=== PATIENT | male | born 1935 | race Caucasian/White ===

== ENCOUNTER 2017-01-18 10:59 | Emergency (ER) | payer MEDICARE, OTHER ==
--- NOTE | 2017-01-18 11:19 | EDM.PDOC ---
ED HPI GENERAL MEDICAL PROBLEM - General Chief Complaint: Respiratory Problem Stated Complaint: SOB POSSBLE PNEUMONIA Time Seen by Provider: 01/18/17 11:05 Source of Information: Reports: Old Records History Limitations: Reports: Altered Mental Status (dementia) - History of Present Illness INITIAL COMMENTS - FREE TEXT/NARRATIVE: Yonathan is a resident of [facility] with a hx of dementia who has been congested and coughing over the past 24 hrs. There is no hx of fever, sweats, choking episodes, rash, or vomiting. No meds have been given. His family requested an ED evaluation. He is DNR/DNI. - Related Data Allergies Allergy/AdvReac Type Severity Reaction Status Date / Time No Known Allergies Allergy Verified 09/16/14 21:06 Home Meds: Home Meds Acetaminophen [Tylenol Extra Strength] 1,000 mg PO BID 05/12/13 [History] Cholecalciferol (Vitamin D3) [Vitamin D3] 5,000 unit PO DAILY 05/12/13 [History] Losartan/Hydrochlorothiazide [Losartan-HCTZ 50-12.5 MG] 1 each PO DAILY [History] Metoprolol Tartrate 50 mg PO BID 05/12/13 [History] Phenytoin Sodium Extended 300 mg PO DAILY 05/12/13 [History] QUEtiapine [SEROquel] 100 mg PO BEDTIME 05/12/13 [History] Tamsulosin [Flomax] 0.4 mg PO DAILY 05/12/13 [History] traMADol [Ultram] 50 mg PO DAILY 05/12/13 [History] traMADol [Ultram] 50 mg PO Q8H PRN 05/12/13 [History] Potassium Chloride 10 meq PO DAILY #30 cap.er 05/17/13 [Rx] Omeprazole 20 mg PO 0600 #30 cap.sr 08/21/13 [Rx] Magnesium Hydroxide [Milk of Magnesia] 30 ml PO ASDIRECTED PRN 09/16/14 [History ] Polyethylene Glycol 3350 [MiraLAX] 17 gram PO BEDTIME 09/16/14 [History] Past Medical History Cardiovascular History: Reports: High Cholesterol, Hypertension Neurological History: Reports: TIA Social & Family History - Tobacco Use Smoking Status *Q: Never Smoker Second Hand Smoke Exposure: No - Alcohol Use Days Per Week of Alcohol Use: 0 - Recreational Drug Use Recreational Drug Use: No - Living Situation & Occupation Living situation: Reports: , with Family Occupation: Retired ED ROS GENERAL - Review of Systems Review Of Systems: Unable To Obtain ED EXAM, GENERAL - Physical Exam Exam: See Below Exam Limited By: Altered Mental Status General Appearance: No Apparent Distress, Lethargic Eye Exam: Bilateral Eye: Normal Inspection, PERRL Ears: Normal External Exam Nose: Normal Inspection Throat/Mouth: Normal Inspection, Normal Lips, No Airway Compromise Head: Normocephalic Neck: Normal Inspection, Limited Range of Motion Respiratory/Chest: No Respiratory Distress, No Accessory Muscle Use, Crackles Cardiovascular: Irregularly Irregular GI/Abdominal: Normal Bowel Sounds, Soft, No Organomegaly, No Distention, No Mass Back Exam: Normal Inspection Extremities: Normal Inspection, Limited Range of Motion Neurological: Inattentive, Confused Psychiatric: Flat Affect Skin Exam: Warm, Dry Lymphatic: No Adenopathy Course - Vital Signs Text/Narrative:: Yonathan remained stable at the [facility] ED. His labwork was reviewed, with mild elevation of WBC 12,900, Hgb 14.0 gm, plts 381,000; Cr 1.5 mg, BUN 27; UA noting >100 WBC/HPF, many bact, nitrites pos; a UC was set up. An asx UTI is apparent, and Cipro 500 mg po was administered before discharge. Daughter was notified of results and discharge. - Orders/Labs/Meds Orders: Active Orders 24 hr Category Date Time Status Chest 1V Frontal [CR] Stat Exams 01/18/17 11:12 Taken CULTURE URINE [RM] Stat Lab 01/18/17 11:16 Received Labs: Laboratory Tests 01/18/17 01/18/17 01/18/17 Range/Units 11:16 12:00 12:00 WBC 12.9 H (4.5-12.0) X10-3/uL RBC 4.31 (4.30-5.75) x10(6)uL Hgb 14.0 D (11.5-15.5) g/dL Hct 41.8 D (30.0-51.3) % MCV 96.8 H (80-96) fL MCH 32.4 (27.7-33.6) pg MCHC 33.4 (32.2-35.4) g/dL RDW 12.5 (11.5-15.5) % Plt Count 381 H (125-369) X10(3)uL MPV 7.3 L (7.4-10.4) fL Neut % (Auto) 77.8 (46-82) % Lymph % (Auto) 12.3 L (13-37) % Person % (Auto) 8.7 (4-12) % Eos % (Auto) 1 (1.0-5.0) % Baso % (Auto) 1 (0-2) % Neut # (Auto) 10.0 H (1.6-8.3) # Lymph # (Auto) 1.6 (0.6-5.0) # Person # (Auto) 1.1 (0.0-1.3) # Eos # (Auto) 0.1 (0.0-0.8) # Baso # (Auto) 0.1 (0.0-0.2) # Sodium 140 (135-145) mmol/L Potassium 3.8 (3.5-5.3) mmol/L Chloride 106 (100-110) mmol/L Carbon Dioxide 23 (23-29) mmol/L BUN 27 H D (8-23) mg/dL Creatinine 1.5 H (0.6-1.3) mg/dL Est Cr Clr Drug Dosing TNP Estimated GFR (MDRD) 45 L (>60) BUN/Creatinine Ratio 18.0 (9-20) Glucose 125 H (80-116) mg/dL Calcium 8.7 (8.6-10.2) mg/dL Urine Color Yellow (YELLOW) Urine Appearance Cloudy (CLEAR) Urine pH 5.0 (5.0-6.5) Ur Specific [place] 1.020 (1.010-1.025) Urine Protein Negative (NEGATIVE) mg/dL Urine Glucose (UA) Normal (NEGATIVE) mg/dL Urine Ketones 15 H (NEGATIVE) mg/dL Urine Occult Blood Moderate H (NEGATIVE) Urine Nitrite Positive H (NEGATIVE) Urine Bilirubin Negative (NEGATIVE) Urine Urobilinogen Normal (NEGATIVE) mg/dL Ur Leukocyte Esterase Large H (NEGATIVE) Urine RBC 5-10 (0) Urine WBC >100 H (0) Ur Squamous Epith Cells Occasional (NS,R,O) Urine Bacteria Many H (NS) Departure - Departure Time of Disposition: 13:15 Disposition: DC/Tfer to SNF 03 Condition: Poor Clinical Impression: Failure to thrive in adult Urinary tract infection Qualifiers: Urinary tract infection type: acute cystitis Hematuria presence: without hematuria Qualified Code(s): N30.00 - Acute cystitis without hematuria - Discharge Information Referrals: Obi Barakat MD [Primary Care Provider] - Forms: ED Department Discharge - Problem List & Annotations (1) Failure to thrive in adult SNOMED Code(s): 015339826 Code(s): R62.7 - ADULT FAILURE TO THRIVE Status: Acute Current Visit: Yes Annotation/Comment:: Yonathan is DNR/DNI and has lost 22# over the past 2 mos. His prognosis is poor. (2) Urinary tract infection SNOMED Code(s): 27365731 Code(s): N39.0 - URINARY TRACT INFECTION, SITE NOT SPECIFIED Status: Acute Current Visit: Yes Annotation/Comment:: Apparent incipient cystitis, managed with Cipro 500 mg bid for a week. Qualifiers: Urinary tract infection type: acute cystitis Hematuria presence: without hematuria Qualified Code(s): N30.00 - Acute cystitis without hematuria - Problem List Review Problem List Initiated/Reviewed/Updated: Yes - My Orders Last 24 Hours: My Active Orders 01/18/17 11:12 Chest 1V Frontal [CR] Stat 01/18/17 11:16 CULTURE URINE [RM] Stat - Assessment/Plan Last 24 Hours: My Active Orders 01/18/17 11:12 Chest 1V Frontal [CR] Stat 01/18/17 11:16 CULTURE URINE [RM] Stat Plan: Yonathan will remain on Cipro 500mg bid for a week, UC and S pending. Follow up with PCP at [facility].
[2017-01-18] MEDS ORDERED: Ciprofloxacin 500 MG Tab PO ONE (13:03)
--- NOTE | 2017-01-18 13:05 | CR ---
INDICATION: Coughing. CHEST: An AP upright view of the chest was obtained 01/18/2017 and compared with 08/19/2013 and 08/16/2013, again revealing a very poor inspiration emphasizing markings and making it difficult to exclude patchy bronchopneumonia , especially at the left lung base, lower lobe. Minimal pneumonia certainly cannot be excluded, especially at the left lung base - lower lobe. The heart appears enlarged, the aorta tortuous with calcification in the arch. Overlying EKG leads are noted. IMPRESSION: 1. No definite acute process, but cannot exclude patchy pneumonia at the left lower lobe especially, due to the poor inspiration. 2. ASHD with probable cardiomegaly. MTDD
[2017-01-18 15:11] VITALS: BP 153/90
== END 2017-01-18 13:45 | disposition home or self-care (01) ==
LOC: FB.ED 10:59
DX: N30.00 Acute cystitis without hematuria (principal); R62.7 Adult failure to thrive; I10 Essential (primary) hypertension; E78.00 Pure hypercholesterolemia, unspecified; F03.90 Unspecified dementia, unspecified severity, without behavioral disturbance, psychotic disturbance, mood disturbance, and anxiety; Z79.899 Other long term (current) drug therapy
CPT/HCPCS: 36415; 71010; 80048; 81001; 85025; 87086; 87088; 87186; 99285; A9270

== ENCOUNTER 2017-01-19 11:20 | Inpatient (IN) | payer MEDICARE, OTHER ==
[2017-01-19] MEDS ORDERED: Albuterol/Ipratropium 3.0-0.5 MG/3 ML Neb Soln NEB ONE (11:28)
--- NOTE | 2017-01-19 11:47 | EDM.PDOC ---
ED HPI GENERAL MEDICAL PROBLEM - General Stated Complaint: UNRESPONSIVE Time Seen by Provider: 01/19/17 11:20 Source of Information: Reports: EMS, Family History Limitations: Reports: Altered Mental Status, Physical Impairment - History of Present Illness INITIAL COMMENTS - FREE TEXT/NARRATIVE: 81 years old w m DNR/DNI was found unresponsive at the N/V 2 days ago. Pt was seen in this ed yesterday and was diagnosed with an uti and pneumonia. Pt was sent home to the with oral Abx. Pt is nonverbal for 2 days and not able swallow food, pills and not able to drink water. Pt did not ppen his eyes for 2 days, does not follow verbal stimuli. He responds to pain by moving his head and attempting to open his eyes. No F/C/N/V/D. Pt is incontinent. Onset: Sudden Onset Date: 01/17/17 Onset Time: 07:00 Duration: Day(s): Location: Reports: Generalized Severity: Mild - Related Data Allergies Allergy/AdvReac Type Severity Reaction Status Date / Time No Known Allergies Allergy Verified 01/19/17 11:40 Home Meds: Home Meds Acetaminophen [Tylenol Extra Strength] 1,000 mg PO BID 05/12/13 [History] Cholecalciferol (Vitamin D3) [Vitamin D3] 5,000 unit PO DAILY 05/12/13 [History] Losartan/Hydrochlorothiazide [Losartan-HCTZ 50-12.5 MG] 1 each PO DAILY [History] Metoprolol Tartrate 50 mg PO BID 05/12/13 [History] Phenytoin Sodium Extended 300 mg PO DAILY 05/12/13 [History] QUEtiapine [SEROquel] 200 mg PO BEDTIME 05/12/13 [History] Tamsulosin [Flomax] 0.4 mg PO DAILY 05/12/13 [History] traMADol [Ultram] 50 mg PO DAILY 05/12/13 [History] Potassium Chloride 10 meq PO DAILY #30 cap.er 05/17/13 [Rx] Omeprazole 20 mg PO 0600 #30 cap.sr 08/21/13 [Rx] Magnesium Hydroxide [Milk of Magnesia] 30 ml PO ASDIRECTED PRN 09/16/14 [History ] Polyethylene Glycol 3350 [MiraLAX] 17 gram PO BEDTIME 09/16/14 [History] risperiDONE Microspheres [RisperiDAL Consta] 25 mg PO Q14D 01/18/17 [History] Acetaminophen [Acetaminophen 8 Hour] 650 mg PO Q4H PRN 01/19/17 [History] Bisacodyl [Dulcolax] 10 mg RECTAL DAILY PRN 01/19/17 [History] Ciprofloxacin HCl [Cipro] 500 mg PO BID 01/19/17 [History] Dextran 70/Hypromellose [Artificial Tears] 1 drop EYEBOTH BID PRN 01/19/17 [ History] Menthol/Selenium Sulfide [Selsun Blue 1% Shampoo] 1 applic TOP TH 01/19/17 [ History] Past Medical History Cardiovascular History: Reports: High Cholesterol, Hypertension Genitourinary History: Reports: Prostate Disorder, Renal Disease, Urinary Incontinence, UTI, Recurrent Musculoskeletal History: Reports: Osteoarthritis, Other (See Below) Other Musculoskeletal History: muscle wasting Neurological History: Reports: TIA Psychiatric History: Reports: Bipolar, Dementia, Depression, Hallucinations Hematologic History: Reports: Anemia Social & Family History - Tobacco Use Smoking Status *Q: Never Smoker Second Hand Smoke Exposure: No - Alcohol Use Days Per Week of Alcohol Use: 0 - Recreational Drug Use Recreational Drug Use: No - Living Situation & Occupation Living situation: Reports: , with Family Occupation: Retired ED ROS GENERAL - Review of Systems Review Of Systems: Unable To Obtain ED EXAM, NEURO - Physical Exam Exam: See Below Exam Limited By: Altered Mental Status General Appearance: Alert, Mild Distress Eye Exam: Bilateral Eye: Abnormal EOM, Vision Changes (Unable to exam) Ears: Normal External Exam Nose: Normal Inspection Throat/Mouth: Other (dry mucosal membrane) Head Exam: Atraumatic, Normocephalic Neck: Normal Inspection Respiratory/Chest: No Respiratory Distress, Rhonchi, Wheezing Cardiovascular: Normal Peripheral Pulses, Tachycardia GI/Abdominal: Normal Bowel Sounds, Soft (Male) Exam: Deferred Rectal (Males) Exam: Deferred Neurological: Other (pt is nonverbal, no response to verbal stimuli, minor response to pain with head movement) Back Exam: Normal Inspection Extremities: Normal Inspection Psychiatric: Depressed Mood Skin Exam: Warm, Dry, Intact, Pallor EKG INTERPRETATION EKG Date: 01/19/17 Time: 11:50 Rhythm: NSR Rate (Beats/Min): 102 [place]: Normal P-Wave: Present QRS: Normal ST-T: Normal QT: Normal Comparison: NA - No Prior EKG Course - Vital Signs Text/Narrative:: 81 years old w m DNR/DNI was found unresponsive at the N/V 2 days ago. Pt was seen in this ed yesterday and was diagnosed with an uti and pneumonia. Pt was sent home to the with oral Abx. Pt is nonverbal for 2 days and not able swallow food, pills and not able to drink water. Pt did not ppen his eyes for 2 days, does not follow verbal stimuli. He responds to pain by moving his head and attempting to open his eyes. No F/C/N/V/D. Pt is incontinent. BP 159/70 Temp 37.3 Pulse ox 98% RA HR 102 PE: Nonverbal 81 y.o.w.m GCS 5 Imaging: Extension of prev frontal CVA Labs: WBC 14K, Cr 1.9 (1.5) UTI (01/18/2018) Impression: Dehydration, CRI, Nonverbal, H/O CVA with leftsided hemiparsis/ plegia, Incontinence, UTI. DNR/DNI Tx: NS, Abx Consultation: Dr. Gan, Hospitalist: Accepted the pt for admission Last Recorded V/S: Last Vital Signs Temp 36.8 C 01/20/17 16:20 Pulse 101 H 01/20/17 16:20 Resp 20 01/20/17 16:20 BP 151/97 H 01/20/17 16:20 Pulse Ox 95 01/20/17 16:20 - Orders/Labs/Meds Orders: Medication Orders Acetaminophen (Tylenol) 650 mg RECTAL Q4H PRN PRN Reason: Mild pain/fever Artificial Tears (Liquitears 1.4% Ophth Soln) 0 ml EYEBOTH ASDIRECTED PRN PRN Reason: DRY EYES Sodium Chloride (Normal Saline) 1,000 mls @ 125 mls/hr IV ASDIRECTED ANMOL Last Admin: 01/20/17 15:13 Dose: 125 mls/hr Infusion: 01/20/17 14:01 Dose: 125 mls/hr Admin: 01/20/17 06:01 Dose: 125 mls/hr Infusion: 01/20/17 05:49 Dose: 125 mls/hr Admin: 01/19/17 21:49 Dose: 125 mls/hr Infusion: 01/19/17 20:57 Dose: 125 mls/hr Admin: 01/19/17 12:57 Dose: 125 mls/hr Levofloxacin/Dextrose 250 mg/ (Premix) 50 mls @ 50 mls/hr IV Q24H [facility] Last Admin: 01/20/17 12:01 Dose: 50 mls/hr Metoprolol Tartrate 5 mg/ (Sodium Chloride) 55 mls @ 100 mls/hr IV Q4H PRN PRN Reason: Hypertension Lorazepam (Ativan) 0.25 mg IVPUSH Q8H PRN PRN Reason: Agitation Morphine Sulfate (Morphine) 2 mg IVPUSH Q2H PRN PRN Reason: Pain (severe 7-10) Phenytoin Sodium (Phenytoin) 90 mg IV Q8H [facility] Last Admin: 01/20/17 14:45 Dose: 90 mg Labs: Laboratory Tests 01/19/17 01/19/17 01/19/17 Range/Units 11:45 11:50 11:50 WBC 14.3 H (4.5-12.0) X10-3/uL RBC 4.10 L (4.30-5.75) x10(6)uL Hgb 13.4 (11.5-15.5) g/dL Hct 39.9 (30.0-51.3) % MCV 97.4 H (80-96) fL MCH 32.6 (27.7-33.6) pg MCHC 33.5 (32.2-35.4) g/dL RDW 12.6 (11.5-15.5) % Plt Count 346 (125-369) X10(3)uL MPV 7.1 L (7.4-10.4) fL Neut % (Auto) 77.0 (46-82) % Lymph % (Auto) 11.9 L (13-37) % [place] % (Auto) 9.8 (4-12) % Eos % (Auto) 0 L (1.0-5.0) % Baso % (Auto) 1 (0-2) % Neut # (Auto) 11.1 H (1.6-8.3) # Lymph # (Auto) 1.7 (0.6-5.0) # [place] # (Auto) 1.4 H (0.0-1.3) # Eos # (Auto) 0.0 (0.0-0.8) # Baso # (Auto) 0.1 (0.0-0.2) # PT 11.6 H (8.7-11.1) INR 1.15 H (0.89-1.13) Sodium 143 (135-145) mmol/L Potassium 3.7 (3.5-5.3) mmol/L Chloride 108 (100-110) mmol/L Carbon Dioxide 24 (23-29) mmol/L BUN 40 H D (8-23) mg/dL Creatinine 1.9 H (0.6-1.3) mg/dL Est Cr Clr Drug Dosing 27.54 mL/min Estimated GFR (MDRD) 34 L (>60) BUN/Creatinine Ratio 21.1 H (9-20) Glucose 127 H (80-116) mg/dL Lactic Acid (0.5-2.2) mmol/L Calcium 8.8 (8.6-10.2) mg/dL B-Natriuretic Peptide (0-100) pg/mL Phenytoin (10-20) ug/mL 01/19/17 01/19/17 01/19/17 Range/Units 11:50 11:50 11:50 WBC (4.5-12.0) X10-3/uL RBC (4.30-5.75) x10(6)uL Hgb (11.5-15.5) g/dL Hct (30.0-51.3) % MCV (80-96) fL MCH (27.7-33.6) pg MCHC (32.2-35.4) g/dL RDW (11.5-15.5) % Plt Count (125-369) X10(3)uL MPV (7.4-10.4) fL Neut % (Auto) (46-82) % Lymph % (Auto) (13-37) % [place] % (Auto) (4-12) % Eos % (Auto) (1.0-5.0) % Baso % (Auto) (0-2) % Neut # (Auto) (1.6-8.3) # Lymph # (Auto) (0.6-5.0) # [place] # (Auto) (0.0-1.3) # Eos # (Auto) (0.0-0.8) # Baso # (Auto) (0.0-0.2) # PT (8.7-11.1) INR (0.89-1.13) Sodium (135-145) mmol/L Potassium (3.5-5.3) mmol/L Chloride (100-110) mmol/L Carbon Dioxide (23-29) mmol/L BUN (8-23) mg/dL Creatinine (0.6-1.3) mg/dL Est Cr Clr Drug Dosing mL/min Estimated GFR (MDRD) (>60) BUN/Creatinine Ratio (9-20) Glucose (80-116) mg/dL Lactic Acid 1.3 (0.5-2.2) mmol/L Calcium (8.6-10.2) mg/dL B-Natriuretic Peptide 199 H (0-100) pg/mL Phenytoin 6.9 L (10-20) ug/mL Meds: Medications Generic Name Dose Route Start Last Admin Trade Name Freq PRN Reason Stop Dose Admin Acetaminophen 650 mg 01/19/17 14:05 Tylenol RECTAL Q4H PRN Mild pain/fever Artificial Tears 0 ml 01/19/17 15:00 Liquitears 1.4% Ophth Soln EYEBOTH ASDIRECTED PRN DRY EYES Sodium Chloride 1,000 mls @ 125 mls/hr 01/19/17 11:30 01/20/17 15:13 Normal Saline IV 125 mls/hr ASDIRECTED ANMOL Administration Levofloxacin/Dextrose 250 mg/ 50 mls @ 50 mls/hr 01/20/17 12:00 01/20/17 12: 01 Premix IV 50 mls/hr Q24H ANMOL Administration Metoprolol Tartrate 5 mg/ 55 mls @ 100 mls/hr 01/19/17 19:17 Sodium Chloride IV Q4H PRN Hypertension Lorazepam 0.25 mg 01/19/17 19:11 Ativan IVPUSH Q8H PRN Agitation Morphine Sulfate 2 mg 01/19/17 14:05 Morphine IVPUSH Q2H PRN Pain (severe 7-10) Phenytoin Sodium 90 mg 01/20/17 14:00 01/20/17 14:45 Phenytoin IV 90 mg Q8H ANMOL Administration Discontinued Medications Generic Name Dose Route Start Last Admin Trade Name Freq PRN Reason Stop Dose Admin Albuterol/Ipratropium 3 ml 01/19/17 11:28 01/19/17 11:46 Duoneb 3.0-0.5 Mg/3 Ml NEB 01/19/17 11:29 3 ml ONETIME ONE Administration Levofloxacin/Dextrose 500 mg/ 100 mls @ 100 mls/hr 01/19/17 12:29 01/19/17 13 :06 Premix IV 01/19/17 13:28 100 mls/hr ONETIME ONE Administration Phenytoin Sodium 90 mg 01/19/17 21:00 01/20/17 05:29 Phenytoin IV 90 mg Q8H ANMOL Administration Departure - Departure Time of Disposition: 16:00 Disposition: Admitted As Inpatient 64 Condition: Poor Clinical Impression: CVA (cerebral vascular accident) Qualifiers: CVA mechanism: unspecified Qualified Code(s): I63.9 - Cerebral infarction, unspecified - Discharge Information
[2017-01-19] MEDS ORDERED: Levofloxacin/Dextrose 5%-Water 500 MG in Premix Bag 1 BAG IV ONE (12:29)
[2017-01-19] MEDS: Sodium Chloride 0.9% 1,000 ML IV SCH ×2 (12:57→21:49)
[2017-01-19] MEDS ORDERED: Acetaminophen 650 MG Supp RECTAL PRN (14:05)
[2017-01-19] MEDS ORDERED: Morphine 2 MG/ML Syringe IVPUSH PRN (14:05)
--- NOTE | 2017-01-19 14:22 | CT ---
INDICATION: Non-responsive since yesterday. CT HEAD WITHOUT CONTRAST: Three sets of scans were obtained apparently due to motion in this non-responsive patient. 2.5 and 5-mm images were obtained 2016. They were compared with 09/16/2014. Total Exam DLP = 2330.32 mGy-cm. There is no shift of midline structures. Ventricles are again prominent and appear fairly similar or perhaps very slightly increased in prominence, compared with the previous study, compatible with central atrophy, possibly minimally progressive. Large areas of abnormal decreased density are noted in the white matter and extending into the cortex in the frontoparietal area on the right, occipital area on the left, and the left frontal area also. The latter two are significantly increased in the case of the left occipital area and new in the case of the left frontal area. These are all areas compatible with previous thrombotic CVAs. No evidence of a hemorrhage - bleeding site - could be identified - no hematoma was seen. Calcifications are noted in the vertebral and internal carotid arteries. Wide spread abnormal decreased density in the white matter is compatible with severe microvascular disease additionally. Cortical sulci are prominent, compatible with cortical atrophy. Paranasal sinuses and mastoid air cells appear to be fairly well aerated. No definite cranial abnormality was seen. IMPRESSION: Multiple areas of encephalomalacia compatible with previous CVAs. Two are new or increased compared with the previous study of 2014. No definite acute intracranial abnormality suggested. MTDD
--- NOTE | 2017-01-19 14:28 | PCM.HP ---
H&P History of Present Illness - General Date of Service: 01/19/17 Admit Problem/Dx: Admission Diagnosis/Problem Admission Diagnosis/Problem Pneumonia, obtundation Source of Information: Family, Old Records, Provider History Limitations: Reports: Altered Mental Status (patient obtunded, dementia at baseline), Other - History of Present Illness Initial Comments - Free Text/Narative: The patient is an 81-year-old male shelter resident who about 3 days ago started to develop a cough. He has underlying dementia and at baseline is nonambulatory and has full cares provided. He became progressively less verbal on the and very sleepy. No PO Intake. By the was lethargic unable to get up to sit in the chair and had a cough which is productive of yellow phlegm. He was nonresponsive by 8:30 in the morning with a low-grade temp and slightly tachycardiac, hypertensive. Family decided to have the patient taken to the emergency room for further evaluation. He was found in the emergency room to have a pneumonia on chest x-ray and a UTI and was given a prescription for oral ciprofloxacin to take back to the shelter. Unfortunately the patient has not been able to take any oral medication and they brought him back in today for further evaluation. He was found here to continue to be unresponsive and to have a creatinine of 1.9 with a baseline of 1.5. After discussion with the patient's daughter, the decision was made to admit for IV antibiotics and IV fluids, recognizing that because prognosis is poor, they would not want anything aggressive to be done to cause the patient pain or distress. If he starts to seem agitated or in distress, they would like him medicated for that. They would like him to have about 24-48 hours to see if he improves and if not, we would proceed with comfort cares. 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 He has had 2 previous broken hips from falls on the left side as well, likely due to that weakness. He 's had memory troubles with Alzheimer's-like symptoms for the last 6 months to a year. He has not been ambulatory since he went into the shelter for 3 years ago. He's been a full cares at the shelter. He sometimes recognizes family, sometimes doesn't. He's had trouble with mood altering medications causing hallucinations in the past. Has a history of seizures possibly from his previous strokes with one seizure and been maintained on phenytoin ever since. #2 gastroesophageal reflux disease #3 bipolar disorder #4 history of recurrent UTIs #5 anemia #6 hypertension #7 history of chronic atrial fibrillation, currently not on anticoagulation due to falls and risk for bleeding. #8 osteoporosis #9 hyperlipidemia currently untreated due to age and morbidity. #10 chronic kidney disease with baseline creatinine 1-1.5 range. Current medications see medication reconciliation list Allergies: No known drug allergies Family history: Noncontributory Social history: The patient is and moved into the shelter here about 3 years ago. After his strokes he became less and less cooperative with cares although he had been maintained at home for some time after his strokes. He was unwilling to ambulate or continue to participate in cares and ultimately required shelter placement. - Related Data Allergies/Adverse Reactions: Allergies Allergy/AdvReac Type Severity Reaction Status Date / Time No Known Allergies Allergy Verified 01/19/17 11:40 Home Medications: Home Meds Acetaminophen [Tylenol Extra Strength] 1,000 mg PO BID 05/12/13 [History] Cholecalciferol (Vitamin D3) [Vitamin D3] 5,000 unit PO DAILY 05/12/13 [History] Losartan/Hydrochlorothiazide [Losartan-HCTZ 50-12.5 MG] 1 each PO DAILY [History] Metoprolol Tartrate 50 mg PO BID 05/12/13 [History] Phenytoin Sodium Extended 300 mg PO DAILY 05/12/13 [History] QUEtiapine [SEROquel] 200 mg PO BEDTIME 05/12/13 [History] Tamsulosin [Flomax] 0.4 mg PO DAILY 05/12/13 [History] traMADol [Ultram] 50 mg PO DAILY 05/12/13 [History] Potassium Chloride 10 meq PO DAILY #30 cap.er 05/17/13 [Rx] Omeprazole 20 mg PO 0600 #30 cap.sr 08/21/13 [Rx] Magnesium Hydroxide [Milk of Magnesia] 30 ml PO ASDIRECTED PRN 09/16/14 [History ] Polyethylene Glycol 3350 [MiraLAX] 17 gram PO BEDTIME 09/16/14 [History] risperiDONE Microspheres [RisperiDAL Consta] 25 mg PO Q14D 01/18/17 [History] Acetaminophen [Acetaminophen 8 Hour] 650 mg PO Q4H PRN 01/19/17 [History] Bisacodyl [Dulcolax] 10 mg RECTAL DAILY PRN 01/19/17 [History] Ciprofloxacin HCl [Cipro] 500 mg PO BID 01/19/17 [History] Dextran 70/Hypromellose [Artificial Tears] 1 drop EYEBOTH BID PRN 01/19/17 [ History] Menthol/Selenium Sulfide [Selsun Blue 1% Shampoo] 1 applic TOP TH 01/19/17 [ History] Past Medical History HEENT History: Reports: Other (See Below) Other HEENT History: dry eye Cardiovascular History: Reports: High Cholesterol, Hypertension Gastrointestinal History: Reports: GERD Genitourinary History: Reports: Prostate Disorder, Renal Disease, Urinary Incontinence, UTI, Recurrent Musculoskeletal History: Reports: Osteoarthritis, Other (See Below) Other Musculoskeletal History: muscle wasting Neurological History: Reports: TIA Other Neuro History: hemiplegia & hemiparesis Psychiatric History: Reports: Bipolar, Dementia, Depression, Hallucinations Hematologic History: Reports: Anemia Social & Family History - Family History Family Medical History: Unobtainable - Tobacco Use Smoking Status *Q: Never Smoker Second Hand Smoke Exposure: No - Caffeine Use Caffeine Use: Reports: None - Alcohol Use Days Per Week of Alcohol Use: 0 - Recreational Drug Use Recreational Drug Use: No - Living Situation & Occupation Living situation: Reports: , with Family Occupation: Retired H&P Review of Systems - Review of Systems: Review Of Systems: See Below General: Reports: ROS unobtainable, Other (Taken from [facility] records. As per HPI. Patient obtunded.) Exam - Exam Exam: See Below - Vital Signs Vital Signs: Last Vital Signs Temp 36.6 C 01/19/17 13:55 Pulse 103 H 01/19/17 13:55 Resp 18 01/19/17 13:55 BP 149/88 H 01/19/17 13:55 Pulse Ox 98 01/19/17 13:55 Weight: 83.489 kg - Exam General: Obtunded HEENT: Other (eyes closed, with forcible opening very constricted and patient resists attempts to examine.) Neck: Supple Lungs: Clear to Auscultation, Decreased Breath Sounds Cardiovascular: Regular Rhythm, Normal S1, Normal S2, Tachycardia GI/Abdominal Exam: Soft, Non-Tender, No Distention, Abnormal Bowel Sounds ( hypoactive) Back Exam: Normal Inspection Extremities: Other (left arm and both hands somewhat contracted. ) Skin: Warm, Dry, Intact (full skin exam not performed. ) Neuro Extensive - Mental Status: Withdraws to Pain, Other (resists passive movement of extremities. ) - Patient Data Result Diagrams: 01/19/17 11:50 01/19/17 11:50 Imaging Impressions Last 24 hrs: xray shows question of infiltrate. Patient however may be too dry to show infiltrate even if present. EKG INTERPRETATION EKG Date: 01/19/17 (monitoring in ER shows A fib) *Q Meaningful Use (ADM) - VTE *Q VTE Criteria *Q: VTE Anticoagulation Contraindications: Medical/Procedure Contrai - Stroke *Q Stroke Criteria *Q: - AMI *Q AMI Criteria *Q: - Problem List (1) Obtundation SNOMED Code(s): 78393689 ICD Code: R40.1 - STUPOR Status: Acute Current Visit: Yes Problem Details: Patient unresponsive, dehydrated, possibly septic. Continue antibiotic therapy with Levaquin as ordered in the emergency department. Renally dosed. IV fluids at 125 mL an hour normal saline. Hernández catheter placed. Palliative care measures initiated. 24-48 hours to see if patient responds to above therapy. Prognosis is fairly poor. (2) senior living-acquired pneumonia SNOMED Code(s): 052512970 ICD Code: J18.9 - PNEUMONIA, UNSPECIFIED ORGANISM Status: Acute Current Visit: Yes Problem Details: Continue renally dosed levaquin. (3) Urinary tract infection SNOMED Code(s): 65352157 ICD Code: N39.0 - URINARY TRACT INFECTION, SITE NOT SPECIFIED Status: Acute Current Visit: No Problem Details: Use IV levaquin, renally dosed. Qualifiers: Urinary tract infection type: acute cystitis Hematuria presence: without hematuria Qualified Code(s): N30.00 - Acute cystitis without hematuria (4) TEN (acute kidney injury) SNOMED Code(s): 56291532 ICD Code: N17.9 - ACUTE KIDNEY FAILURE, UNSPECIFIED Status: Acute Current Visit: Yes Problem Details: IV hydration, follow labs and UO. (5) Seizure disorder SNOMED Code(s): 455930597 ICD Code: G40.909 - EPILEPSY, UNSP, NOT INTRACTABLE, WITHOUT STATUS EPILEPTICUS Status: Acute Current Visit: Yes Problem Details: IV phenytoin. Would suggest lower dose due to renal issues. Pharmacy will adjust. (6) Bipolar 1 disorder SNOMED Code(s): 852852804 ICD Code: F31.9 - BIPOLAR DISORDER, UNSPECIFIED Status: Acute Current Visit: Yes Problem Details: Hold psych meds. May give IV ativan for anxiety. (7) Hypertension SNOMED Code(s): 49102759 ICD Code: I10 - ESSENTIAL (PRIMARY) HYPERTENSION Status: Chronic Priority : Medium Current Visit: No Problem Details: IV metoprolol PRN for SBP > 160 or HR > 110 (8) Palliative care status SNOMED Code(s): 644469235 ICD Code: Z51.5 - ENCOUNTER FOR PALLIATIVE CARE Status: Acute Current Visit: Yes Problem Details: Ativan for agitation, morphine IV for pain PRN. Comfort cares if patient doesn't respond to tx within 24-48 hours. Problem List Initiated/Reviewed/Updated: Yes Orders Last 24hrs: Active Orders 24 hr Category Date Time Status Patient Status [ADT] Routine ADT 01/19/17 13:59 Active Oxygen Therapy [RC] PRN Care 01/19/17 13:59 Active VTE/DVT Education [RC] Per Unit Routine Care 01/19/17 13:59 Active Vital Signs [RC] Q4H Care 01/19/17 13:59 Active CBC WITH AUTO DIFF [HEME] AM Lab 01/20/17 05:11 Ordered COMPREHENSIVE METABOLIC PN,CMP [CHEM] AM Lab 01/20/17 05:11 Ordered Acetaminophen [Tylenol] Med 01/19/17 14:05 Active 650 mg RECTAL Q4H PRN Morphine Med 01/19/17 14:05 Active 2 mg IVPUSH Q2H PRN Medication Orders Acetaminophen (Tylenol) 650 mg RECTAL Q4H PRN PRN Reason: Mild pain/fever Sodium Chloride (Normal Saline) 1,000 mls @ 125 mls/hr IV ASDIRECTED ANMOL Last Admin: 01/19/17 12:57 Dose: 125 mls/hr Morphine Sulfate (Morphine) 2 mg IVPUSH Q2H PRN PRN Reason: Pain (severe 7-10) Assessment/Plan Comment:: Discussed code status with daughter. Patient is DNR/DNI, avoid painful procedures, treat symptoms of pain and agitation. If not responding well to tx , consider comfort measures.
[2017-01-19] MEDS ORDERED: Polyvinyl Alcohol 1.4% Ophth Soln 15 ML Bottle EYEBOTH PRN (15:00)
[2017-01-19] MEDS ORDERED: LORazepam 2 MG/ML MDV IVPUSH PRN (19:11)
[2017-01-19] MEDS ORDERED: Metoprolol Tartrate 5 MG in Sodium Chloride 0.9% 50 ML IV PRN (19:17)
[2017-01-19] MEDS: Phenytoin 250 MG/5 ML SDV IV SCH (20:31)
[2017-01-20] MEDS: Phenytoin 250 MG/5 ML SDV IV SCH (05:29)
[2017-01-20] MEDS: Sodium Chloride 0.9% 1,000 ML IV SCH ×3 (06:01→23:23)
--- NOTE | 2017-01-20 08:12 | PCM.PN ---
- General Info Date of Service: 01/20/17 Admission Dx/Problem (Free Text): Patient is still obtunded. Does not response to voice or stimulation physically. Nurses report the same. - Patient Data Vitals - Most Recent: Last Vital Signs Temp 99.1 F 01/20/17 04:00 Pulse 98 01/20/17 04:00 Resp 18 01/20/17 04:00 BP 161/92 H 01/20/17 04:00 Pulse Ox 98 01/20/17 04:00 Weight - Most Recent: 174 lb 3.2 oz I&O - Last 24 Hours: Intake & Output 01/19/17 01/20/17 01/20/17 22:59 06:59 14:59 Intake Total 1091 1028 Output Total 250 300 Balance 841 728 Lab Results Last 24 Hours: Laboratory Results - last 24 hr 01/20/17 01/20/17 Range/Units 06:25 06:25 WBC 11.1 (4.5-12.0) X10-3/uL RBC 3.68 L (4.30-5.75) x10(6)uL Hgb 12.5 (11.5-15.5) g/dL Hct 36.0 (30.0-51.3) % MCV 97.8 H (80-96) fL MCH 33.9 H (27.7-33.6) pg MCHC 34.7 (32.2-35.4) g/dL RDW 12.3 (11.5-15.5) % Plt Count 309 (125-369) X10(3)uL MPV 7.7 (7.4-10.4) fL Neut % (Auto) 71.5 (46-82) % Lymph % (Auto) 13.6 (13-37) % Rains % (Auto) 10.0 (4-12) % Eos % (Auto) 1 (1.0-5.0) % Baso % (Auto) 4 H (0-2) % Neut # (Auto) 8.0 (1.6-8.3) # Lymph # (Auto) 1.5 (0.6-5.0) # Rains # (Auto) 1.1 (0.0-1.3) # Eos # (Auto) 0.1 (0.0-0.8) # Baso # (Auto) 0.4 H (0.0-0.2) # Sodium 143 (135-145) mmol/L Potassium 3.4 L (3.5-5.3) mmol/L Chloride 110 (100-110) mmol/L Carbon Dioxide 20 L (23-29) mmol/L BUN 34 H (8-23) mg/dL Creatinine 1.5 H (0.6-1.3) mg/dL Est Cr Clr Drug Dosing 34.89 mL/min Estimated GFR (MDRD) 45 L (>60) BUN/Creatinine Ratio 22.7 H (9-20) Glucose 123 H (80-116) mg/dL Calcium 8.2 L (8.6-10.2) mg/dL Total Bilirubin 0.6 (0.1-1.3) mg/dL AST 19 D (5-27) IU/L ALT 12 L D (14-26) IU/L Alkaline Phosphatase 83 (56-112) IU/L Total Protein 7.1 (6.0-8.0) g/dL Albumin 3.0 L (3.2-4.6) g/dL Globulin 4.1 g/dL Albumin/Globulin Ratio 0.7 Med Orders - Current: Current Medications Acetaminophen (Tylenol) 650 mg RECTAL Q4H PRN PRN Reason: Mild pain/fever Artificial Tears (Liquitears 1.4% Ophth Soln) 0 ml EYEBOTH ASDIRECTED PRN PRN Reason: DRY EYES Sodium Chloride (Normal Saline) 1,000 mls @ 125 mls/hr IV ASDIRECTED [facility] Last Admin: 01/20/17 06:01 Dose: 125 mls/hr Levofloxacin/Dextrose 250 mg/ (Premix) 50 mls @ 50 mls/hr IV Q24H [facility] Metoprolol Tartrate 5 mg/ (Sodium Chloride) 55 mls @ 100 mls/hr IV Q4H PRN PRN Reason: Hypertension Lorazepam (Ativan) 0.25 mg IVPUSH Q8H PRN PRN Reason: Agitation Morphine Sulfate (Morphine) 2 mg IVPUSH Q2H PRN PRN Reason: Pain (severe 7-10) Phenytoin Sodium (Phenytoin) 90 mg IV Q8H [facility] Last Admin: 01/20/17 05:29 Dose: 90 mg Discontinued Medications Albuterol/Ipratropium (Duoneb 3.0-0.5 Mg/3 Ml) 3 ml NEB ONETIME ONE Stop: 01/19/17 11:29 Last Admin: 01/19/17 11:46 Dose: 3 ml Levofloxacin/Dextrose 500 mg/ (Premix) 100 mls @ 100 mls/hr IV ONETIME ONE Stop: 01/19/17 13:28 Last Admin: 01/19/17 13:06 Dose: 100 mls/hr - Exam General: Obtunded. No: Alert, Oriented Neck: Supple Lungs: Normal Respiratory Effort, Decreased Breath Sounds Cardiovascular: Regular Rate, Regular Rhythm Skin: Warm, Dry Psy/Mental Status: No: Alert, Normal Affect, Normal Mood - Problem List & Annotations (1) Pneumonia SNOMED Code(s): 449523731 Code(s): J18.9 - PNEUMONIA, UNSPECIFIED ORGANISM Status: Acute Current Visit: Yes (2) Palliative care status SNOMED Code(s): 164772316 Code(s): Z51.5 - ENCOUNTER FOR PALLIATIVE CARE Status: Acute Current Visit: Yes (3) Obtundation SNOMED Code(s): 60522810 Code(s): R40.1 - STUPOR Status: Acute Current Visit: Yes Annotation/ Comment:: Patient unresponsive, dehydrated, possibly septic. Continue antibiotic therapy with Levaquin as ordered in the emergency department. Renally dosed. IV fluids at 125 mL an hour normal saline. Hernández catheter placed. Palliative care measures initiated. 24-48 hours to see if patient responds to above therapy. Prognosis is fairly poor. (4) Urinary tract infection SNOMED Code(s): 35482915 Code(s): N39.0 - URINARY TRACT INFECTION, SITE NOT SPECIFIED Status: Acute Current Visit: No Qualifiers: Urinary tract infection type: acute cystitis Hematuria presence: without hematuria Qualified Code(s): N30.00 - Acute cystitis without hematuria Annotation/Comment:: Use IV levaquin, renally dosed. - Problem List Review Problem List Initiated/Reviewed/Updated: Yes - Plan Plan:: 1. Continue IV antibiotics and fluids. 2. The previous physician discussed this with the daughter. Patient is DNR/DNI, avoid painful procedures, treat symptoms of pain and agitation. If not responding well to tx, consider comfort measures. 3. Await to see how this patient response. So far he has not.
[2017-01-20] MEDS: Levofloxacin/Dextrose 5%-Water 250 MG in Premix Bag 1 BAG IV SCH (12:01)
[2017-01-21] MEDS: Sodium Chloride 0.9% 1,000 ML IV SCH ×2 (07:21→20:26)
--- NOTE | 2017-01-21 09:00 | PCM.PN ---
- General Info Date of Service: 01/21/17 Admission Dx/Problem (Free Text): Patient still not responsive. - Patient Data Vitals - Most Recent: Last Vital Signs Temp 98.9 F 01/21/17 01:00 Pulse 88 01/21/17 07:48 Resp 16 01/21/17 07:48 BP 124/69 01/21/17 07:48 Pulse Ox 94 L 01/21/17 07:48 Weight - Most Recent: 174 lb 6.4 oz I&O - Last 24 Hours: Intake & Output 01/20/17 01/21/17 01/21/17 22:59 06:59 14:59 Intake Total 1657 1027 Output Total 175 300 Balance 1482 727 Med Orders - Current: Current Medications Acetaminophen (Tylenol) 650 mg RECTAL Q4H PRN PRN Reason: Mild pain/fever Artificial Tears (Liquitears 1.4% Ophth Soln) 0 ml EYEBOTH ASDIRECTED PRN PRN Reason: DRY EYES Sodium Chloride (Normal Saline) 1,000 mls @ 125 mls/hr IV ASDIRECTED [facility] Last Admin: 01/21/17 07:21 Dose: 125 mls/hr Levofloxacin/Dextrose 250 mg/ (Premix) 50 mls @ 50 mls/hr IV Q24H [facility] Last Admin: 01/20/17 12:01 Dose: 50 mls/hr Metoprolol Tartrate 5 mg/ (Sodium Chloride) 55 mls @ 100 mls/hr IV Q4H PRN PRN Reason: Hypertension Lorazepam (Ativan) 0.25 mg IVPUSH Q8H PRN PRN Reason: Agitation Morphine Sulfate (Morphine) 2 mg IVPUSH Q2H PRN PRN Reason: Pain (severe 7-10) Phenytoin Sodium (Phenytoin) 90 mg IV Q8H [facility] Last Admin: 01/21/17 05:33 Dose: 90 mg Discontinued Medications Albuterol/Ipratropium (Duoneb 3.0-0.5 Mg/3 Ml) 3 ml NEB ONETIME ONE Stop: 01/19/17 11:29 Last Admin: 01/19/17 11:46 Dose: 3 ml Levofloxacin/Dextrose 500 mg/ (Premix) 100 mls @ 100 mls/hr IV ONETIME ONE Stop: 01/19/17 13:28 Last Admin: 01/19/17 13:06 Dose: 100 mls/hr Phenytoin Sodium (Phenytoin) 90 mg IV Q8H [facility] Last Admin: 01/20/17 05:29 Dose: 90 mg - Exam General: Obtunded. No: Alert, Oriented Lungs: Normal Respiratory Effort, Rales (Mild basis) Cardiovascular: Regular Rate, Regular Rhythm, No Murmurs Extremities: No Pedal Edema Psy/Mental Status: No: Alert, Normal Affect, Normal Mood - Problem List & Annotations (1) Pneumonia SNOMED Code(s): 548467493 Code(s): J18.9 - PNEUMONIA, UNSPECIFIED ORGANISM Status: Acute Current Visit: Yes (2) Palliative care status SNOMED Code(s): 838308973 Code(s): Z51.5 - ENCOUNTER FOR PALLIATIVE CARE Status: Acute Current Visit: Yes (3) Obtundation SNOMED Code(s): 08983696 Code(s): R40.1 - STUPOR Status: Acute Current Visit: Yes Annotation/ Comment:: Patient unresponsive, dehydrated, possibly septic. Continue antibiotic therapy with Levaquin as ordered in the emergency department. Renally dosed. IV fluids at 125 mL an hour normal saline. Hernández catheter placed. Palliative care measures initiated. 24-48 hours to see if patient responds to above therapy. Prognosis is fairly poor. (4) Urinary tract infection SNOMED Code(s): 55734425 Code(s): N39.0 - URINARY TRACT INFECTION, SITE NOT SPECIFIED Status: Acute Current Visit: No Qualifiers: Urinary tract infection type: acute cystitis Hematuria presence: without hematuria Qualified Code(s): N30.00 - Acute cystitis without hematuria Annotation/Comment:: Use IV levaquin, renally dosed. - Problem List Review Problem List Initiated/Reviewed/Updated: Yes - Plan Plan:: 1. Continue IV antibiotics and fluids. 2. Discussed care with his family. They would like to try 24 hours more than IV antibiotic some fluids. 3. Hospice consult. 4. Decrease IV fluid rate. 5. MS IV when necessary for pain or patient being uncomfortable.
[2017-01-21] MEDS: Levofloxacin/Dextrose 5%-Water 250 MG in Premix Bag 1 BAG IV SCH (11:35)
--- NOTE | 2017-01-22 08:11 | PCM.PN ---
- General Info Date of Service: 01/22/17 Admission Dx/Problem (Free Text): Patient still not responsive even to painful stimuli. He is resting comfortably. - Patient Data Vitals - Most Recent: Last Vital Signs Temp 97.9 F 01/22/17 04:00 Pulse 76 01/22/17 04:00 Resp 20 01/22/17 04:00 BP 124/68 01/22/17 04:00 Pulse Ox 96 01/22/17 04:00 Weight - Most Recent: 174 lb 6.4 oz I&O - Last 24 Hours: Intake & Output 01/21/17 01/22/17 01/22/17 22:59 06:59 14:59 Intake Total 1497 560 Output Total 475 175 Balance 1022 385 Med Orders - Current: Current Medications Acetaminophen (Tylenol) 650 mg RECTAL Q4H PRN PRN Reason: Mild pain/fever Artificial Tears (Liquitears 1.4% Ophth Soln) 0 ml EYEBOTH ASDIRECTED PRN PRN Reason: DRY EYES Sodium Chloride (Normal Saline) 1,000 mls @ 75 mls/hr IV ASDIRECTED [facility] Last Admin: 01/21/17 20:26 Dose: 75 mls/hr Levofloxacin/Dextrose 250 mg/ (Premix) 50 mls @ 50 mls/hr IV Q24H [facility] Last Admin: 01/21/17 11:35 Dose: 50 mls/hr Metoprolol Tartrate 5 mg/ (Sodium Chloride) 55 mls @ 100 mls/hr IV Q4H PRN PRN Reason: Hypertension Lorazepam (Ativan) 0.25 mg IVPUSH Q8H PRN PRN Reason: Agitation Morphine Sulfate (Morphine) 2 mg IVPUSH Q2H PRN PRN Reason: Pain Phenytoin Sodium (Phenytoin) 90 mg IV Q8H [facility] Last Admin: 01/22/17 06:06 Dose: 90 mg Discontinued Medications Albuterol/Ipratropium (Duoneb 3.0-0.5 Mg/3 Ml) 3 ml NEB ONETIME ONE Stop: 01/19/17 11:29 Last Admin: 01/19/17 11:46 Dose: 3 ml Levofloxacin/Dextrose 500 mg/ (Premix) 100 mls @ 100 mls/hr IV ONETIME ONE Stop: 01/19/17 13:28 Last Admin: 01/19/17 13:06 Dose: 100 mls/hr Phenytoin Sodium (Phenytoin) 90 mg IV Q8H [facility] Last Admin: 01/20/17 05:29 Dose: 90 mg - Exam General: Obtunded Lungs: Clear to Auscultation, Normal Respiratory Effort Cardiovascular: Regular Rate, Regular Rhythm, No Murmurs Extremities: No Pedal Edema - Problem List & Annotations (1) Pneumonia SNOMED Code(s): 093860223 Code(s): J18.9 - PNEUMONIA, UNSPECIFIED ORGANISM Status: Acute Current Visit: Yes (2) Palliative care status SNOMED Code(s): 636891266 Code(s): Z51.5 - ENCOUNTER FOR PALLIATIVE CARE Status: Acute Current Visit: Yes (3) Obtundation SNOMED Code(s): 70084624 Code(s): R40.1 - STUPOR Status: Acute Current Visit: Yes Annotation/ Comment:: Patient unresponsive, dehydrated, possibly septic. Continue antibiotic therapy with Levaquin as ordered in the emergency department. Renally dosed. IV fluids at 125 mL an hour normal saline. Hernández catheter placed. Palliative care measures initiated. 24-48 hours to see if patient responds to above therapy. Prognosis is fairly poor. (4) Urinary tract infection SNOMED Code(s): 89280186 Code(s): N39.0 - URINARY TRACT INFECTION, SITE NOT SPECIFIED Status: Acute Current Visit: No Qualifiers: Urinary tract infection type: acute cystitis Hematuria presence: without hematuria Qualified Code(s): N30.00 - Acute cystitis without hematuria Annotation/Comment:: Use IV levaquin, renally dosed. - Problem List Review Problem List Initiated/Reviewed/Updated: Yes - My Orders Last 24 Hours: My Active Orders 01/21/17 09:53 Consult to Hospice [CONS] Routine - Plan Plan:: 1. Patient not respond Levaquin even though it sensitive on his urine. 2. Held long talk with family about his care. They felt if he does not wake up today they want to put him on hospice and transferred back to [facility]. And that is the plan will that we will do today.
--- NOTE | 2017-01-22 08:17 | PCM.DCSUM1 ---
Discharge Summary - Hospital Course Free Text/Narrative:: Hospital course-patient was placed on Levaquin IV and IV fluids. And his vitals are's stable and he was afebrile. His lab tests look pretty normal. His white count was okay. Chest x-ray showed possible pneumonia. He had a UA in the ER that was positive and grew out Escherichia coli sensitive to everything. In spite of all that and the fluids and the IV antibiotics the patient was obtunded the whole time he was here. He did not wake up and or respond to painful stimuli. Had a long discussion with the family that his prognosis is most likely terminal. They wanted to wait to see below, after 48 hours. He did not wake up so the family decided to transfer him back to [facility] and place him on hospice. Hospice consult was done the day prior to being discharged. He had a CT scan when he first came in that showed chronic changes. The family asked about a new stroke. I said that's always possible but before documented do anything with the result there is no signs or repeating the CAT scan. They were and agreement with this decision. Brief History: The patient is an 81-[facility]-old male [facility] who about 3 days ago started to develop a cough. He has underlying dementia and at baseline is nonambulatory and has full cares provided. He became progressively less verbal on the and very sleepy. No PO Intake. By the 17th was lethargic unable to get up to sit in the chair and had a cough which is productive of yellow phlegm. He was nonresponsive by 8:30 in the morning with a low-grade temp and slightly tachycardiac, hypertensive. Family decided to have the patient taken to the emergency room for further evaluation. He was found in the emergency room to have a pneumonia on chest x-ray and a UTI and was given a prescription for oral ciprofl[facility]. Unfortunately the patient has not been able to take any oral medication and they brought him back in today for further evaluation. He was found here to continue to be unresponsive and to have a creatinine of 1.9 with a baseline of 1.5. After discussion with the patient's daughter, the decision was made to admit for IV antibiotics and IV fluids, recognizing that because prognosis is poor, they would not want anything aggressive to be done to cause the patient pain or distress. If he starts to seem agitated or in distress, they would like him medicated for that. They would like him to have about 24-48 hours to see if he improves and if not, we would proceed with comfort cares. - Discharge Data Discharge Date: 01/22/17 Discharge Disposition: DC/Tfer to Hospice - Home 50 Condition: Poor - Discharge Diagnosis/Problem(s) (1) Pneumonia SNOMED Code(s): 088366116 ICD Code: J18.9 - PNEUMONIA, UNSPECIFIED ORGANISM Status: Acute Current Visit: Yes (2) Palliative care status SNOMED Code(s): 122534931 ICD Code: Z51.5 - ENCOUNTER FOR PALLIATIVE CARE Status: Acute Current Visit: Yes (3) Obtundation SNOMED Code(s): 26871069 ICD Code: R40.1 - STUPOR Status: Acute Current Visit: Yes Problem Details: Patient unresponsive, dehydrated, possibly septic. Continue antibiotic therapy with Levaquin as ordered in the emergency department. Renally dosed. IV fluids at 125 mL an hour normal saline. Hernández catheter placed. Palliative care measures initiated. 24-48 hours to see if patient responds to above therapy. Prognosis is fairly poor. (4) Urinary tract infection SNOMED Code(s): 71435749 ICD Code: N39.0 - URINARY TRACT INFECTION, SITE NOT SPECIFIED Status: Acute Current Visit: No Problem Details: Use IV levaquin, renally dosed. Qualifiers: Urinary tract infection type: acute cystitis Hematuria presence: without hematuria Qualified Code(s): N30.00 - Acute cystitis without hematuria - Patient Summary/Data Consults: Consultations 01/21/17 09:53 Consult to Hospice [CONS] Routine Comment: Physician Instructions: - Patient Instructions Other/Special Instructions: 1. Transfer back to [facility] where he was staying prior to admission. 2. Hospice. 3. See hospice orders. - Discharge Plan Patient Handouts: Sequential Compression Device, Deep Vein Thrombosis Forms: ED Department Discharge, Take Home DC Nutrition Plan Referrals: Obi aBrakat MD [Primary Care Provider] - - Discharge Summary/Plan Comment DC Time >30 min.: No - Patient Data Vitals - Most Recent: Last Vital Signs Temp 97.9 F 01/22/17 04:00 Pulse 76 01/22/17 04:00 Resp 20 01/22/17 04:00 BP 124/68 01/22/17 04:00 Pulse Ox 96 01/22/17 04:00 Weight - Most Recent: 174 lb 6.4 oz I&O - Last 24 hours: Intake & Output 01/21/17 01/22/17 01/22/17 22:59 06:59 14:59 Intake Total 1497 560 Output Total 475 175 Balance 1022 385 Med Orders - Current: Current Medications Acetaminophen (Tylenol) 650 mg RECTAL Q4H PRN PRN Reason: Mild pain/fever Artificial Tears (Liquitears 1.4% Ophth Soln) 0 ml EYEBOTH ASDIRECTED PRN PRN Reason: DRY EYES Sodium Chloride (Normal Saline) 1,000 mls @ 75 mls/hr IV ASDIRECTED ANMOL Last Admin: 01/21/17 20:26 Dose: 75 mls/hr Levofloxacin/Dextrose 250 mg/ (Premix) 50 mls @ 50 mls/hr IV Q24H [facility] Last Admin: 01/21/17 11:35 Dose: 50 mls/hr Metoprolol Tartrate 5 mg/ (Sodium Chloride) 55 mls @ 100 mls/hr IV Q4H PRN PRN Reason: Hypertension Lorazepam (Ativan) 0.25 mg IVPUSH Q8H PRN PRN Reason: Agitation Morphine Sulfate (Morphine) 2 mg IVPUSH Q2H PRN PRN Reason: Pain Phenytoin Sodium (Phenytoin) 90 mg IV Q8H [facility] Last Admin: 01/22/17 06:06 Dose: 90 mg Discontinued Medications Albuterol/Ipratropium (Duoneb 3.0-0.5 Mg/3 Ml) 3 ml NEB ONETIME ONE Stop: 01/19/17 11:29 Last Admin: 01/19/17 11:46 Dose: 3 ml Levofloxacin/Dextrose 500 mg/ (Premix) 100 mls @ 100 mls/hr IV ONETIME ONE Stop: 01/19/17 13:28 Last Admin: 01/19/17 13:06 Dose: 100 mls/hr Phenytoin Sodium (Phenytoin) 90 mg IV Q8H [facility] Last Admin: 01/20/17 05:29 Dose: 90 mg *Q Meaningful Use (DIS) - VTE *Q VTE Criteria *Q: VTE Anticoagulation Contraindications: Medical/Procedure Contrai - Stroke *Q Stroke Criteria *Q: - AMI *Q AMI Criteria *Q:
[2017-01-22 09:56] VITALS: BP 106/52
== END 2017-01-22 10:10 | disposition hospice, inpatient (51) | DRG 194 ==
LOC: FB.ED 11:20 → OBSVTOIN 13:55 → INTOOBSV 13:55 → FB.MS 13:55
PROVIDERS: ADMIT Family Medicine; ATTEND Family Medicine
DX: J18.9 Pneumonia, unspecified organism (principal); N30.00 Acute cystitis without hematuria; I69.954 Hemiplegia and hemiparesis following unspecified cerebrovascular disease affecting left non-dominant side; N17.9 Acute kidney failure, unspecified; E86.0 Dehydration; I12.9 Hypertensive chronic kidney disease with stage 1 through stage 4 chronic kidney disease, or unspecified chronic kidney disease; N18.9 Chronic kidney disease, unspecified; Z66 Do not resuscitate; G40.909 Epilepsy, unspecified, not intractable, without status epilepticus; G30.9 Alzheimer's disease, unspecified; F02.80 Dementia in other diseases classified elsewhere, unspecified severity, without behavioral disturbance, psychotic disturbance, mood disturbance, and anxiety; I48.2 Chronic atrial fibrillation; F31.9 Bipolar disorder, unspecified; B96.20 Unspecified Escherichia coli [E. coli] as the cause of diseases classified elsewhere; R41.82 Altered mental status, unspecified; R40.1 Stupor; Z51.5 Encounter for palliative care; E78.5 Hyperlipidemia, unspecified; M19.90 Unspecified osteoarthritis, unspecified site; Z87.440 Personal history of urinary (tract) infections; K21.9 Gastro-esophageal reflux disease without esophagitis
CPT/HCPCS: 36415; 70450; 80048; 80185; 83605; 83880; 85025; 85610; 93005; 94640; 96365; 99285; J1956; J7040; J7620; 51702; 80053; A9270-GY; J1165